=== PATIENT | female | born 1990 | race African-American/Black ===

== ENCOUNTER 2016-06-24 00:17 | Emergency (ER) | payer OTHER ==
[~2016-06-24] VITALS: Ht 177.8 cm; Wt 114.3 kg
[~2016-06-24 00:17] MED LIST: ALPRAZOLAM1 MG PO; CARISOPRODOL350 MG PO; FLAGYL500 MG PO; IBUPROFEN800 MG PO; IRON325 MG PO; MOTRIN50 MG PO; MOTRIN800 MG PO; MUSCLE RELAXER; NAPROSYN500 MG PO; NOHOMEMEDS; NORCO 5/3251 TABLET PO; OXYCODONE-APAP1 EACH PO; PERCOCET 10/1 TABLET PO; PERCOCET 5/31 TABLET PO; PRENATAL TABLE1 EAC3 PO; TRAMADOL HCL50 MG PO
[2016-06-24] MEDS ORDERED: NAPROSYN500 MG PO (01:32)
[2016-06-24 02:10] VITALS: BP 132/90
== END 2016-06-24 02:12 | disposition home or self-care (01) ==
LOC: EME 00:17
DX: T14.8 Other injury of unspecified body region (principal); R07.9 Chest pain, unspecified; M54.5 Low back pain; M25.551 Pain in right hip; W10.9XXA Fall (on) (from) unspecified stairs and steps, initial encounter; Y09 Assault by unspecified means; R51 Headache; I10 Essential (primary) hypertension; F17.200 Nicotine dependence, unspecified, uncomplicated
CPT/HCPCS: 70450; 71020; 72125; 99281; 99284